=== PATIENT | female | born 1995 | race Two or more races ===

== ENCOUNTER 2018-07-01 06:01 | Inpatient (IN) | payer OTHER ==
[~2018-07-01] VITALS: Ht 160 cm; Wt 59.4 kg
[~2018-07-01 06:01] MED LIST: IBUPROFEN600 MG ORAL
[2018-07-01 06:30] VITALS: BP 102/58
[2018-07-01] MEDS ORDERED: Gelfoam Size TOPIC ONE (07:03)
[2018-07-01] MEDS ORDERED: EPINEPHrine 1mg/1ml Amp ONE (07:03)
[2018-07-01] MEDS ORDERED: Thrombin 5000 units spray kit TOPIC ONE (07:03)
[2018-07-01] MEDS ORDERED: Gelfoam Absorbable 1gm powder pkt TOPIC ONE (07:04)
[2018-07-01] MEDS ORDERED: Bupivacaine 0.5% Inj 30 ml vial INJ ONE (07:04)
[2018-07-01] MEDS ORDERED: Bacitracin 50000 Units Vial ONE (07:04)
[2018-07-01 07:08] LABS: APPEARANCE,URINE TURBID; BILIRUBIN, URINE NEGATIVE (NEGATIVE); GLUCOSE, URINE (UA) NEGATIVE (NEGATIVE); KETONES,URINE NEGATIVE (NEGATIVE); LEUKOCYTE ESTERASE ,URINE 3+ (NEGATIVE); NITRITE,URINE NEGATIVE (NEGATIVE); PH,URINE 6 (4.5-8.0); PROTEIN,URINE NEGATIVE (NEGATIVE); UROBILINOGEN,URINE 1 MG/DL (0.0-1.0)
[2018-07-01 07:13] LABS: COLOR,URINE YELLOW
[2018-07-01] MEDS ORDERED: fentaNYL 100 mcg/2 mL IV ONE (07:22)
[2018-07-01] MEDS ORDERED: Zemuron 50mg/5ml Inj IV ONE (07:23)
[2018-07-01] MEDS ORDERED: Ketamine 500mg Inj ONE (07:27)
[2018-07-01] MEDS ORDERED: Dexamethasone 4mg/ml vial ONE (07:27)
[2018-07-01] MEDS ORDERED: Propofol 200mg/20ml IV ONE (07:27)
[2018-07-01] MEDS ORDERED: Lidocaine 1% MPF 10mg/ml 5ml ONE (07:27)
[2018-07-22] VITALS (9 sets, daily range): BP systolic 90–108; BP diastolic 47–67
[2018-07-22 10:06] LABS: APPEARANCE,URINE SLIGHTLY CLOUDY; BILIRUBIN, URINE NEGATIVE (NEGATIVE); COLOR,URINE PALE YELLOW; GLUCOSE, URINE (UA) NEGATIVE (NEGATIVE); KETONES,URINE 1+ (NEGATIVE); LEUKOCYTE ESTERASE ,URINE 3+ (NEGATIVE); NITRITE,URINE NEGATIVE (NEGATIVE); PH,URINE 6 (4.5-8.0); PROTEIN,URINE NEGATIVE (NEGATIVE); UROBILINOGEN,URINE NORMAL MG/DL (0.0-1.0)
[2018-07-22] MEDS ORDERED: Zemuron 50mg/5ml Inj IV ONE (11:44)
[2018-07-22] MEDS ORDERED: cefOXitin 1gm Inj ONE (11:45)
[2018-07-22] MEDS ORDERED: EPINEPHrine 1mg/1ml Amp ONE (11:46)
[2018-07-22] MEDS ORDERED: Bupivacaine 0.5% Inj 30 ml vial INJ ONE (11:47)
[2018-07-22] MEDS ORDERED: Gelfoam Size TOPIC ONE (11:47)
[2018-07-22] MEDS ORDERED: Bacitracin 50000 Units Vial ONE (11:47)
[2018-07-22] MEDS ORDERED: Thrombin 5000 units TOPIC ONE (11:47)
--- NOTE | 2018-07-22 12:00 | Pre-Procedure Note/Attestation ---
Pre-Procedure Note/Attestation Complete Prior to Procedure Planned Procedure: not applicable Procedure Narrative: L5-S1 ALIF Indications for Procedure Pre-Operative Diagnosis: L5-S1 discogenic pain Attestation I attest that I discussed the nature of the procedure; its benefits; risks and complications; and alternatives (and the risks and benefits of such alternatives ), prior to the procedure, with the patient (or the patient's legal career services representative). I attest that, if there was a reasonable possibility of needing a blood transfusion, the patient (or the patient's legal career services representative) was given the [facility] standardized written summary, pursuant to the Deangelo Marcella Blood Safety Act ([place] Health and Safety Code # 1645, as amended). I attest that I re-evaluated the patient just prior to the surgery and that there has been no change in the patient's H&P, except as documented below: CHAN DOYLE Jul 22, 2018 12:00
[2018-07-22] MEDS ORDERED: Midazolam 2mg/2ml Inj ONE (12:02)
[2018-07-22] MEDS ORDERED: fentaNYL 100 mcg/2 mL IV ONE (12:02)
[2018-07-22] MEDS ORDERED: Lidocaine 1% MPF 10mg/ml 5ml ONE (12:03)
[2018-07-22] MEDS ORDERED: Heparin 5000 units/ml inj ONE (12:23)
[2018-07-22] MEDS ORDERED: NS Irrig 1000ml ONE (12:30)
[2018-07-22] MEDS ORDERED: Propofol 1,000mg/ 100ml btl IV ONE (12:30)
[2018-07-22] MEDS ORDERED: Sterile Water Irrig 1000ml IRRIG ONE (12:30)
[2018-07-22] MEDS ORDERED: LR 1000ml ONE (12:30)
[2018-07-22] MEDS ORDERED: Morphine Sulfate 10mg/ml Inj ONE (13:24)
[2018-07-22] MEDS ORDERED: Sodium Chloride 10ml vial INJ ONE (13:27)
[2018-07-22] MEDS ORDERED: Neostigmine 1mg/ml 10ml Inj ONE (13:27)
[2018-07-22] MEDS ORDERED: Glycopyrrolate 0.2mg/ml 1ml Vial ONE ×2 (13:27→14:09)
[2018-07-22] MEDS ORDERED: LR 1000ml 1,000 ML IVLG SCH (14:04)
--- NOTE | 2018-07-22 14:04 | Anethesia Preoperative Eval ---
Anesthesia Pre-op PMH/ROS General Date of Evaluation: Jul 22, 2018 Time of Evaluation: 11:50 Anesthesiologist: Nikita ASA Score: ASA 2 Mallampati Score Class I : Soft palate, uvula, fauces, pillars visible Class II: Soft palate, uvula, fauces visible Class III: Soft palate, base of uvula visible Class IV: Only hard plate visible Mallampati Classification: Class II Surgeon: Will Diagnosis: Lumbar radiculopathy Surgical Procedure: L5-S1 anterior discectomy fusion Anesthesia History: none Family History: no anesthesia problems Allergies: Coded Allergies: No Known Allergies (Unverified , 06/30/18) Medications: see eMAR Past Medical History Cardiovascular: Denies: HTN, CAD, NC, valve dz, arrhythmia, other Pulmonary: Denies: asthma, COPD, KENDELL, other Gastrointestinal/Genitourinary: Reports: other - asymptomatic inflamatory changes in urinalysis with positive urinary culture; Denies: GERD, CRI, ESRD Neurologic/Psychiatric: Reports: other - chronic pain; Denies: dementia, CVA, depression/anxiety, TIA Endocrine: Denies: DM, hypothyroidism, steroids, other HEENT: Denies: cataract (L), cataract (R), glaucoma, PILOT STATION (L), PILOT STATION (R), other Hematology/Immune: Denies: anemia, DVT, bleeding disorder, other Musculoskeletal/Integumentary: Reports: DJD; Denies: OA, RA, DDD, edema, other PMH Narrative: as above PSxH Narrative: none Anesthesia Pre-op Phys. Exam Physician Exam Last Vital Signs Date Time Temp Pulse Resp B/P (MAP) Pulse Ox O2 Delivery O2 Flow Rate FiO2 07/22/18 10:38 Room Air 07/22/18 10:28 97.0 72 18 104/63 (77) 97 97.0 Constitutional: NAD Neurologic: CN 2-12 intact Cardiovascular: RRR, no M/R/G Respiratory: CTA Gastrointestinal: S/NT/ND Airway Exam Mallampati Score: Class II MO: full Neck: flexible ROM: full Teeth: intact Dentures: no upper, no lower Anesthesia Pre-op A/P Labs see chart Urine Test Test 07/22/18 09:45 Urine HCG, Qualitative Negative (NEGATIVE) Studies Pre-op Studies: EKG - NSR Risk Assessment & Plan Assessment: ASA 2 Plan: GA with ETT PONV prevention Status Change Before Surgery: No Pre-Antibiotics Drug: Cefoxitin 1gr Given Within 1 Hr of Incision: Yes Time Given: 13:10 Manuel Shelton MD Jul 22, 2018 14:04
[2018-07-22] MEDS ORDERED: Ketorolac 30mg Inj ONE (14:09)
[2018-07-22] MEDS ORDERED: Ketorolac 30mg Inj IV PRN (14:15)
[2018-07-22] MEDS ORDERED: Meperidine 50mg/ml Inj(FOR RIGORS ONLY) IV PRN (14:15)
[2018-07-22] MEDS ORDERED: Acetaminophen (Non formulary) 100 ML IV ONE (14:15)
[2018-07-22] MEDS ORDERED: Metoclopramide 10mg/2ml Inj IVP PRN (14:15)
[2018-07-22] MEDS ORDERED: Midazolam 2mg/2ml Inj IVP PRN (14:15)
[2018-07-22] MEDS ORDERED: DiphenhydrAMINE 50mg/ml Inj IVP PRN (14:15)
[2018-07-22] MEDS ORDERED: fentaNYL 100 mcg/2 mL IV PRN (14:15)
[2018-07-22] MEDS ORDERED: NS w/KCl 20mEq 1,000 ML IV SCH (15:02)
--- NOTE | 2018-07-22 15:02 | Brief Operative Note ---
Immediate Post Operative Note Operative Note Chief Complaint: Low back pain Pre-op Diagnosis: L5-S1 discogenic pain Procedure: L5-S1 ALIF Post-op Diagnosis: Same Post-op Diagnosis: same as pre-op Findings: consistent w/pre-op dx studies Surgeon: Salvatore Doyle Senior Data Analyst: Feng Camilo Additional Surgeons: Sam Kirkpatrick Anesthesia: general Specimen: yes - Disc Complications: none Condition: stable Fluids: SEe anesth record Estimated Blood Loss: volume - 50 cc Drains: none Implant(s) used?: Yes - Nuvasive cage and screws CHAN DOYLE Jul 22, 2018 15:02
--- NOTE | 2018-07-22 15:25 | Immediate Post-Op Evaluation ---
Immediate Post-Op Evalulation Immediate Post-Op Evalulation Procedure: Anterior lumbar L5-S1 discectomy fusion Date of Evaluation: Jul 22, 2018 Time of Evaluation: 15:24 IV Fluids: 1000 Blood Products: none Estimated Blood Loss: 50 Urinary Output: 300 Blood Pressure Systolic: 92 Blood Pressure Diastolic: 56 Pulse Rate: 80 Respiratory Rate: 20 O2 Sat by Pulse Oximetry: 99 Temperature (Fahrenheit): 97.8 Pain Score (1-10): 1 Nausea: No Vomiting: No Complications none Patient Status: reacts, patent, extubated, none Hydration Status: adequate Manuel Shelton MD Jul 22, 2018 15:25
[2018-07-22] MEDS ORDERED: Chloraseptic Spray 20mL Bottle ORAL PRN (16:00)
[2018-07-22] MEDS ORDERED: Morphine Sulfate 2mg/ml Inj IM PRN (16:00)
[2018-07-22] MEDS ORDERED: Cyclobenzaprine 10mg Tab ORAL PRN (16:00)
--- NOTE | 2018-07-22 16:10 | Diagnostic Imaging Report ---
Indication: Left lower extremity pain and low back pain, intraoperative Technique: Intraoperative images Total fluoroscopy time 15.8 seconds Total dose area product [id number] mGycm2 Number of images: 3 Comparison: none Findings: Intraoperative images demonstrate surgical tool anterior to what is presumably the L5-S1 disc. Subsequent images document anterior fusion hardware placed at L5-S1 with a disc spacer Impression: Intraoperative imaging, as described
[2018-07-22] MEDS: NS w/KCl 20mEq 1,000 ML IV SCH (17:54)
[2018-07-22] MEDS: ceFAZolin sod 1 GM in D5W 55 ML IV SCH (22:02)
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
[2018-07-23] VITALS: BP 93/82
[2018-07-23] MEDS: NS w/KCl 20mEq 1,000 ML IV SCH ×3 (03:08→18:22)
--- NOTE | 2018-07-23 03:45 | Consultation ---
DATE OF CONSULTATION: 07/22/2018 HISTORY OF PRESENT ILLNESS: This is a 22-year-old female with a history of degenerative disk disease, lumbosacral spine, who is undergoing anterior and superior exposure for interbody fusion, lumbosacral spine. PAST MEDICAL HISTORY: None except for UTI that has been treated by the business account specialist. PAST SURGICAL HISTORY: None. ALLERGIES: None. SOCIAL HISTORY: No smoking, drinking, or drug use. MEDICATIONS: Medication list reviewed. PHYSICAL EXAMINATION: VITAL SIGNS: Blood pressure is 110/60, pulse is 80, and respirations are 18. CARDIOVASCULAR: Regular . Normal S1 and S2. No murmurs, gallops, or rubs. LUNGS: Clear. ABDOMEN: Soft. EXTREMITIES: Warm. IMPRESSION: Degenerative disk disease, lumbosacral spine. RECOMMENDATIONS: We will proceed with anterior and superior exposure for interbody fusion, lumbosacral spine. Risks, benefits, complications, alternative explained to the patient. Consent obtained. Risks and benefits have been explained to the patient included, but not limited to bleeding, infection, damage to the lungs, damage to ureter, wound infection, wound dehiscence, DVT, PE, loss of limb, loss of life, hernias, and high-risk nature of the operation were fully explained and stressed with the patient. All questions were answered. Ample time was given to the patient to ask all her questions. Krzysztof Kirkpatrick MD DR: TURNER JOB#: [id number] CC:
[2018-07-23 04:00] VITALS: BP 94/59
--- NOTE | 2018-07-23 05:00 | Operative Note - Dictated ---
DATE OF OPERATION: 07/22/2018 PREOPERATIVE DIAGNOSIS: Degenerative disk disease of lumbosacral spine. POSTOPERATIVE DIAGNOSIS: Degenerative disk disease of lumbosacral spine. PROCEDURES: 1. Anterior retroperitoneal exposure, interbody fusion, L5-S1. 2. Ligation of middle sacral vessels. SURGEON: Krzysztof Kirkpatrick M.D. CO-SURGEON: Rylee Solis M.D. ANESTHESIA: General. ESTIMATED BLOOD LOSS: 50 mL. OPERATIVE NOTE: Risks, benefits, complications, and alternatives high-risk nature of the operation were fully explained to the patient. Consent obtained. . Risks and benefits have been explained to the patient included, but not limited to bleeding, infection, damage to lungs, damage to ureter, wound infection, wound dehiscence, DVT, PE, loss of limb, loss of life, PE, hernias, and high-risk nature of the operation were fully explained and stressed to the patient and the family. OPERATIVE TECHNIQUE: The patient was placed in supine position. I made a 6 cm incision in the left lower quadrant in horizontal fashion. Incision was taken down to the subcutaneous tissue, which was opened using electrocautery. Left anterior rectus sheath was opened in the direction of the wound. The rectus muscle was dissected medially and retroperitoneal space was entered. retractor was placed retracting left rectus muscles to the left and bowel contents to the right. I dissected the left common iliac artery and vein, external iliac artery and vein, and the psoas muscle. I ligated the middle sacral vessels. Exposure of L4 and L5 was obtained between the right and left common iliac artery and vein by retracting them gently to the side. We then proceeded with the dissection and placement of a new plate. Please refer to Dr. Solis's dictation for the details of operation. were satisfactorily read by Dr. Solis. Needle count and sponge count were correct. The wound was irrigated using antibiotic solution. Anterior rectus sheath was closed using a #1 Vicryl suture in a running fashion. The wound was irrigated again and closed in two layers of 2-0 Vicryl suture for subcu and subcuticular and Steri-Strips for the skin. The patient tolerated the procedure well. Krzysztof Kirkpatrick MD DR: AG JOB#: [id number] CC:
[2018-07-23] MEDS: ceFAZolin sod 1 GM in D5W 55 ML IV SCH ×2 (05:40→12:07)
[2018-07-23 08:00] VITALS: BP 104/59
[2018-07-23] MEDS: HYDROmorphone 1mg/ml Carpuject SUBQ PRN ×3 (08:10→18:22)
--- NOTE | 2018-07-23 08:49 | 48 Hour Post Anesthesia Eval ---
Post Anesthesia Evaluation Procedure: Anterior lumbar L5-S1 discectomy fusion Date of Evaluation: Jul 23, 2018 Time of Evaluation: 08:48 Blood Pressure Systolic: 95 0: 62 Pulse Rate: 64 Respiratory Rate: 20 Temperature (Fahrenheit): 97.8 O2 Sat by Pulse Oximetry: 98 Airway: patent Nausea: No Vomiting: No Pain Intensity: 3 Hydration Status: adequate Cardiopulmonary Status: stable Mental Status/LOC: patient returned to baseline Follow-up Care/Observations: n/a Post-Anesthesia Complications: none Follow-up care needed: N/A Manuel Shelton MD Jul 23, 2018 08:49
[2018-07-23 12:00] VITALS: BP 96/56
[2018-07-23] MEDS ORDERED: NS w/KCl 20mEq 1,000 ML IV SCH (15:02)
[2018-07-23 16:00] VITALS: BP 101/63
--- NOTE | 2018-07-23 18:30 | Progress Note ---
DATE: 07/23/2018 ACUTE PAIN MANAGEMENT PHYSICIAN PROGRESS NOTE MEDICATIONS: Medication administration record reviewed. Medications include IV fluids, Protonix, and antibiotics. P.r.n. medications include Fioricet, Benadryl, Chloraseptic Cataumet, Flexeril, Mylanta, morphine, Dilaudid, Tylenol. LABORATORY STUDIES: No interval laboratory studies. OBJECTIVE: VITAL SIGNS: Afebrile, pulse 86, respirations 18, blood pressure 94/59 and oxygen saturation % on room air. I spent over 60 minutes in consultation today. I saw the patient at the bedside with her boyfriend and the nurse, RN, Hannah. I discussed the case with the surgeon, Dr. Solis and the night nurse, Zeinab CLARKE. The patient is neurologically intact. Moving all extremities x4. The Gonzalez catheter is in place. She is tolerating IV fluids and still has intermittent nausea symptoms. I have made available Phenergan as a second-line antiemetic agent if necessary. The patient has tolerated the subcutaneous Dilaudid, so I will discontinue the previous orders for morphine. The patient does have a bottle of pills at home, although she cannot recall the name. I have asked the patient's boyfriend to check with her home members to determine what the name of the bottle of the pills at home is. If it is a narcotic, which she states has been tolerated in the past, this will serve as a good postoperative analgesic. If the medication is nonsteroidal anti-inflammatory, then I will need to trial and error oral analgesics to help transition her off of the subcutaneous Dilaudid. The patient has no allergies. With continued nausea symptoms after ALIF surgery, I would refrain from using oral analgesics at this time. The patient has been passing flatus and we will trial her on clear liquids only tolerability. The patient has already ambulated out of bed with physical therapy. She should continue ambulating as ad-savannah. With her relatively low blood pressure, she will continue with her IV fluids at this time. The boyfriend is providing good social support and also coaching the patient with her incentive spirometer usage. When she is in bed, she should continue with sequential compression Unna boot devices for DVT prophylaxis. Pierre Saleh M.D. DR: EMERY JOB#: [id number] CC:
[2018-07-23 20:00] VITALS: BP 113/70
[2018-07-24] VITALS: BP 114/63
[2018-07-24] MEDS: NS w/KCl 20mEq 1,000 ML IV SCH ×2 (00:34→09:15)
[2018-07-24] MEDS: HYDROmorphone 1mg/ml Carpuject SUBQ PRN ×2 (00:35→09:00)
[2018-07-24 04:00] VITALS: BP 104/65
[2018-07-24 08:00] VITALS: BP 111/60
--- NOTE | 2018-07-24 08:00 | Progress Note ---
DATE: 07/24/2018 ACUTE PAIN MANAGEMENT PHYSICIAN PROGRESS NOTE MEDICATIONS: Medication administration record reviewed. Medications include Tylenol, Fioricet, Mylanta, Flexeril, Benadryl, Dilaudid, Zofran, Protonix, Chloraseptic spray, and Phenergan. LABORATORY STUDIES: No interval laboratory studies. OBJECTIVE: VITAL SIGNS: Currently afebrile, T-max 99.8 at midnight, pulse 96, respirations 18, blood pressure 104/65, and oxygen saturation 98% on room air. I spent over 60 minutes in consultation today. I saw the patient at the bedside with the nurse RN, Anderson. Discussed the case in detail with the surgeon, Dr. Solis, who will be arranging with his office for the patient to obtain a lumbar back brace. The patient remains in her room with her boyfriend, who is providing excellent social support and who also was coaching her with aggressive incentive spirometer usage. The patient has been out of bed walking with a front wheel walker and I have asked the hospital to provide a front wheel walker for home usage. We contacted the patient's mother, who identified the bottle of pain pills at home to be tramadol. So, in addition to the tramadol, which the patient has at home already, I will also leave a prescription for 40 tablets of [place] 10/325 to use for severe pain. After the patient's ALIF spine surgery, she is passing positive flatus and tolerating advancing diet. She has no emesis or nausea symptoms. She denies any shortness of breath or chest pain. The patient is able to sleep frequently and at age 22, should be able to advance her ambulation well with her support at home. The Gonzalez catheter was removed this morning and I agree with the surgeon, Dr. Solis, for discharge home later today once she was adjourned and the front wheel walker is provided by the hospital. Dr. Solis's office will arrange for lumbar back brace to be dispensed and delivered to the patient's home. Of note, the patient was found to be MRSA screening positive. The patient will follow up with Dr. Solis's outpatient surgical clinic for surgical followup. Pierre Saleh M.D. DR: PATT JOB#: [id number] CC:
[2018-07-24] MEDS ORDERED: NORCO 10-325 T1 EACH ORAL (10:57)
[2018-07-24 12:00] VITALS: BP 110/66
--- NOTE | 2018-07-24 23:00 | Discharge Summary ---
DATE OF ADMISSION: 07/22/2018 DATE OF DISCHARGE: 07/24/2018 ADMITTING PHYSICIAN/SURGEON: Rylee Solis M.D. CONSULTING PHYSICIAN: Pierre Saleh M.D., pain management. PLASTIC PARTS FABRICATOR SURGEON: Krzysztof Kirkpatrick M.D. ADMITTING DIAGNOSIS: Lumbosacral spine degenerative disk disease. POSTOPERATIVE DIAGNOSIS: Lumbosacral spine degenerative disk disease status post anterior interbody lumbar spine fusion L5-S1. HOSPITAL COURSE: The patient was admitted on 07/22/2018 for elective anterior lumbar spine fusion surgery L5-S1. Dr. Solis and Dr. Kirkpatrick performed the surgery and surgery went smoothly and uneventfully. The patient was transferred from the operating room to the recovery room, where she performed satisfactorily. She was transferred to the orthopedic floor unit. Serial monitoring was performed including vital signs. The patient advanced her ambulation and diet. Physical therapy worked with the patient. The patient was discharged to home on 07/24/2018 with hospital front wheel walker. Dr. Solis's office will arrange for a lumbar spine brace to be delivered to the patient's home. The patient's pain was adequately controlled by Dr. Saleh with the pain prescriptions dispensed. There were no complications except that the patient was discovered to screen positive for MRSA from 07/01/2018 specimen from the nares. Pierre Saleh M.D. DR: EMERY JOB#: [id number] CC:
== END 2018-07-24 12:10 | disposition home or self-care (01) | DRG 460 ==
LOC: SDSOVERFLO 06:01 → UNDOADMIN 06:01 → SDSOVERFLO 07-22 09:35 → 3E 07-22 15:02
PROC: 0ST40ZZ Resection of Lumbosacral Disc, Open Approach (ICD-10-PCS; principal; 2018-07-22 12:00)
PROC: 0SG30A0 Fusion of Lumbosacral Joint with Interbody Fusion Device, Anterior Approach, Anterior Column, Open Approach (ICD-10-PCS; principal; 2018-07-22 12:00)
DX: M51.17 Intervertebral disc disorders with radiculopathy, lumbosacral region (principal); M48.061 Spinal stenosis, lumbar region without neurogenic claudication; V89.2XXS Person injured in unspecified motor-vehicle accident, traffic, sequela
CPT/HCPCS: 36415; 72020; 76001; 81003; 81025; 86850; 86900; 86901; 87081; 87086; 94003; 94150; J2250; J2405; J2710